=== PATIENT | male | born 1965 | race Caucasian/White ===

== ENCOUNTER → 2022-08-28 07:10 | Outpatient (CLI) | payer OTHER, SELFPAY ==
--- NOTE | ~2022-08-28 | MR_ITS ---
MRI of the lumbar spine Clinical History: Back pain Technique: Axial T2-weighted images, and sagittal T1-weighted, T2-weighted, and T2 fat-sat images wer e acquired. COMPARISON: 11/13/2017 Findings: There is no fracture or subluxation of the lumbar spine. Vertebral bodies maintain normal h eight and alignment. No suspicious bone marrow signal abnormality identified. At L1-L2, there is no significant disc bulge or herniation. There is minimal facet arthropathy. No sp inal canal stenosis or neural foraminal narrowing. At L2-L3, there is no disc bulge or herniation. There is mild facet arthropathy. No spinal canal sten osis or neural foraminal narrowing. At L3-L4, there is no disc bulge or herniation. There is facet arthropathy. No spinal canal stenosis or neural foraminal narrowing. At L4-L5, there is disc desiccation and mild diffuse disc bulge with facet arthropathy. No spinal can al stenosis. There is mild bilateral neural foraminal narrowing. At L5-S1, there is no disc bulge or herniation. There is mild facet arthropathy. No spinal canal sten osis or neural foraminal narrowing. Paravertebral soft tissues are unremarkable. Impression: Mild degenerative spondylosis, as detailed above. There is mild bilateral neural foraminal narrowing at L4-L5, related to facet arthropathy and disc bulge. Additional facet joint degenerative changes, a s detailed above. Reviewed, dictated and finalized at [facility]. BULANCE ATTENDANT Impression: Mild degenerative spondylosis, as detailed above. There is mild bilateral neura l foraminal narrowing at L4-L5, related to facet arthropathy and disc bulge. Ad ditional facet joint degenerative changes, as detailed above.
== END ==
PROVIDERS: PCP Family Medicine; Visit Provider Nurse Practitioner Adult Health
DX: M54.50 Low back pain, unspecified (principal); M43.06 Spondylolysis, lumbar region; M51.36 Other intervertebral disc degeneration, lumbar region
CPT/HCPCS: 72148

== ENCOUNTER → 2022-09-05 14:17 | Outpatient (CLI) | payer OTHER, SELFPAY ==
--- NOTE | ~2022-09-05 | XR_ITS ---
EXAMINATION: XR lumbar spine min 4V DATE: 09/05/2022 14:57 INDICATION: Low back pain TECHNIQUE: Anteroposterior, lateral, and bilateral oblique views of the lumbar spine, and cone-down l ateral view of the lumbosacral junction were obtained. COMPARISON: MRI, 08/28/2022 FINDINGS: Bone alignment is normal. There is no fracture. There is moderate loss of intervertebral di sc space height at L4-5. The vertebral body heights are maintained. There is moderate to severe facet joint osteoarthritis of the lower lumbar spine. Surgical clips in the right upper quadrant are likel y from prior cholecystectomy. IMPRESSION: 1. Mild lower lumbar spondylosis without acute findings. Reviewed, dictated and finalized at location L. [employer]W FOREMAN
== END ==
PROVIDERS: PCP Family Medicine; Visit Provider Nurse Practitioner Adult Health
DX: M47.26 Other spondylosis with radiculopathy, lumbar region (principal)
CPT/HCPCS: 72110

== ENCOUNTER 2023-09-05 12:49 | Outpatient (CLI) | payer OTHER, SELFPAY ==
--- NOTE | ~2023-09-05 | XR_ITS ---
EXAMINATION: XR chest 2V 09/05/2023 13:08 INDICATION: Dyspnea with exertion PROCEDURE: 2 view chest COMPARISON: 04/17/2017 FINDINGS: The lungs are clear. The cardiomediastinal silhouette is within normal limits. There are no pleural effusions. There is no pneumothorax suspected. IMPRESSION: 1: NO ACUTE CARDIOPULMONARY DISEASE. Reviewed, dictated and finalized at location A. RBARIC NURSE
== END 2023-09-05 12:50 | disposition home or self-care (01) ==
PROVIDERS: PCP Family Medicine; Visit Provider Internal Medicine Cardiovascular Disease
DX: R06.09 Other forms of dyspnea (principal)
CPT/HCPCS: 71046

== ENCOUNTER 2023-09-18 12:29 | Outpatient (CLI) | payer OTHER, SELFPAY ==
--- NOTE | 2023-09-18 16:03 | P.PCNPFT_ITS ---
PFT Procedure Performed PFT Procedure Performed Plethysmography (Lung Vol) Diffusing Cap (DLCO) Flow Vol Loop Spirometry w/o Bronchodil PFT Interpretation This is a pulmonary function test with spirometry, plethysmography and diffusing capacity. The test was performed and results interpreted in accordance with the 2019 and 2005 ATS/ERS Task Force guidelines respectively using the Global Lung Function Initiative-2012 reference equations. Patient demonstrated good effort and cooperation. Reproducibility criteria were met. The quality of the spirometry maneuver was Grade A. Findings: Spirometry: The contour the inspiratory and expiratory flow tracing are normal. The FVC is 3.61 L, 69% predicted. The FEV1 is 2.88 L, 71% predicted. The FEV1: FVC ratio is 80%. Plethysmography: The total lung capacity is 5.87 L, 78% predicted. The functional residual capacity is 2.69 L, 69% predicted. The residual volume is 2.55 L, 97% predicted. Diffusing capacity: The diffusing capacity unadjusted for hemoglobin and carboxyhemoglobin is 23.7, 77% predicted. The diffusing capacity adjusted for a lveolar volume is 4.86, 116% predicted. Impression: There is a mild restrictive ventilatory abnormality. The spirometry is normal without evidence of an obstructive abnormality. The diffusing capacity is normal. There are no prior studies for comparison
== END 2023-09-18 12:30 | disposition home or self-care (01) ==
PROVIDERS: PCP Family Medicine; Visit Provider Internal Medicine Cardiovascular Disease
DX: R06.09 Other forms of dyspnea (principal); R94.2 Abnormal results of pulmonary function studies
CPT/HCPCS: 94375; 94726; 94729

== ENCOUNTER 2024-03-16 10:50 | Emergency (ER) | payer OTHER, SELFPAY ==
--- NOTE | 2024-03-16 10:51 | ED.URI ---
HPI - URI/Sore Throat General Chief Complaint: Upper Respiratory Infection Stated Complaint: sinus issues Time Seen by Provider: 03/16/24 10:59 Source: patient, RN notes reviewed and old records reviewed Mode of arrival: ambulatory Limitations: no limitations History of Present Illness HPI Narrative: 58-year-old male presents to [facility] with complaints of congestion. reports that his heart rate has been higher then his normal. HX of A-fib and states that he does take his medications as prescribed. Patient denies any fevers. Denies any chest pain or shortness of breath. Related Data Home Medications Medication Instructions Recorded Confirmed aspirin 81 mg tablet,delayed 81 mg PO DAILY 08/13/22 03/16/24 release (Jack Low Dose Aspirin) atorvastatin 20 mg tablet 20 mg PO DAILY 08/13/22 03/16/24 cholecalciferol (vitamin D3) 10 10 mcg PO DAILY 08/13/22 03/16/24 mcg (400 unit) capsule [id number] 150 mcg-vit K1 1 tablet PO DAILY 08/13/22 03/16/24 30 mcg-lycop 300 mcg-lutein tablet (Centrum Minis Men 50 Plus) rabeprazole 20 mg tablet,delayed 20 mg PO DAILY 08/13/22 03/16/24 release Allergies Allergy/AdvReac Type Severity Reaction Status Date / Time No Known Allergies Allergy Verified 10/11/22 11:08 Review of Systems Review of Systems: All systems reviewed & are unremarkable except as noted in HPI and below Constitutional: Constitutional: Reports no additional constitutional complaints Eyes: Eyes: Reports no additional eye complaints ENT: Reports as per HPI Cardiovascular: Cardiovascular: Reports no additional cardiovascular complaints, Denies chest pain and Denies dyspnea Respiratory: Respiratory: Reports no additional respiratory complaints, Denies chest congestion, Denies cough and Denies dyspnea Gastrointestinal: Gastrointestinal: Reports no additional gastrointestinal complaints, Denies abdominal pain, Denies nausea and Denies vomiting Musculoskeletal: Musculoskeletal: Reports no additional musculoskeletal complaints Integumentary/Breasts: Skin/Breast: Reports system reviewed and no additional complaints, except as docu Neurologic: Reports system reviewed and no additional complaints, except as documented Psychiatric: Psychiatric: Reports no additional psychiatric complaints Allergic/Immunologic: Allergic/Immunologic: Reports no additional allergic/immunologic complaints PMFSH Past Medical History Medical History Acid reflux Anxiety Cardiac arrhythmia Depression FHx: total knee replacement Gallbladder disease Hiatal hernia Lumbar radiculopathy Lumbar spondylosis Other spondylosis with radiculopathy, lumbar region Sleep apnea Surgical History Surgical History Hx of tonsillectomy S/P cholecystectomy Family History Family History Other Depression Diabetes mellitus Heart disease Hypertension Social History Social History Smoking status: Never smoker Alcohol intake: never Substance use: never Substance use type: does not use Lack of Transportation: No Lack of Food: Never True Current Housing: I Have Housing Concerned About Future Housing: No Difficulty Paying Gas/Electric Bills: No Difficulty Paying for Meds: No Currently Unemployed: No Education: Decline to Answer Difficulty w/ Childcare or Family Care: Decline to Answer Living arrangements: with family Comments At the time of my signature, I reviewed and agree with the nursing past medical, surgical, social, and family history. There is no relevant family history pertinent to the patient complaint. Exam Const: General: cooperative, healthy appearing, comfortable, no acute distress, well developed, alert and well nourished Nutritional Appearance: well nouris
[2024-03-16 11:00] VITALS: BP 152/97; PULSE 86; RESP 14; TEMP 36.3; O2SAT 99
--- NOTE | 2024-03-16 11:04 | ECG_ITS ---
Test Date: 2024-03-16 11:15:24 Measurements Intervals [place] Rate: 78 P: 11 MD: 169 QRS: 21 QRSD: 106 T: 12 QT: 356 QTc: 406 Interpretive Statements SINUS RHYTHM INCOMPLETE RIGHT BUNDLE BRANCH BLOCK BASELINE ARTIFACT- I, II, AVR BORDERLINE ECG No previous ECG available for comparison Electronically Signed On 03-16-2024 12:24:30 CDT by Mack Boggs D.O.
[2024-03-16 11:32] LABS: EDINFLUASCREEN Negative; EDINFLUBSCREEN Negative
== END 2024-03-16 11:24 | disposition home or self-care (01) ==
PROVIDERS: Emergency Provider Nurse Practitioner; PCP Family Medicine
DX: J01.40 Acute pansinusitis, unspecified (principal); Z20.822 Contact with and (suspected) exposure to COVID-19; K21.9 Gastro-esophageal reflux disease without esophagitis; Z79.82 Long term (current) use of aspirin
CPT/HCPCS: 87426; 87804; 93005; 99213; G0463

== ENCOUNTER 2025-08-02 17:43 | Emergency (ER) | payer OTHER, SELFPAY ==
--- OUTSIDE RECORDS SUMMARY | 2025-08-02 17:50 | XMS_ITS | Data Portability ---
Author Organization [place] - [facility] Kuli Kuli, Main Office Address [address] [place] [address] Care Team Providers Care Fabrication Inspector Name Role Phone GAURAV UHNTER Primary Care Provider [phone] Assessment Encounter Date Assessment Date Assessment LastModified by Organization Details LastModified Time 04/03/2023 04/03/2023 57 yo M with - DDD L-SPINE - CHRONIC LOW BACK PAIN - HTN - CAD (S/p 1 stent) - HYPERBILIRUBINEMIA - RT SHOULDER PAIN, Chronic - CALCIFIC TENDINITIS, Rt shoulder - DDD L-SPINE - GERD - ALLERGIC RHINITIS - SIRIA (On Cpap & Oral device) - OVERWEIGHT - H/O HYPERKALEMIA - H/O ELEVATED LFTs - H/O VIT D DEFICIENCY 2-D echo: 09/30/22. MRI L-spine wo: 08/28/22. Annual labs: 08/23/22. MRI L-spine wo: 08/21/21. Annual labs: 08/20/21. X-ray L-spine: 04/26/21. Annual labs: 09/07/20. 2-D echo: 06/16/20. Annual labs: 08/24/19. MRI Rt shoulder wo: 11/22/18. Stress Echo: 08/14/18. Annual labs: 08/10/18. X-ray Rt shoulder: 08/03/18. X-ray L-spine: 11/07/17. D/w pt about his findings, recent labs & imagines and further plan of care. Advised pt to f/u with GI soon. All meds verified with pt. Meds as directed. Cont heat pack as directed. F/u with 2nd Ortho as per schedule. Cont f/u with Spine surgeon as per schedule. Cont f/u with Pain clinic as per schedule. Cont f/u with Ortho at [facility] as per schedule. Cont f/u with Cardio as per schedule. Cont f/u with Ophtho and Dentist as per schedule. Cont f/u with GI as per schedule. Pt has done PT and now doing at home. Diet and exercise explained in detail. BP diary education given and call us if any concerns. Pt had declined for any further work up for his elevated LFTs. HM: EGD - 2007, normal as per pt. Cont f/u with GI as per their recommendations. Colonoscopy - 2012, normal as per pt. Cont f/u with GI as per schedule. Tdap - 08/10/18. Flu - 08/19/22. Pneumo - Pt declined. Shingrix - At pharmacy/HD. F/u in 5 months. Annual labs in 08/30. [email or web address] Not available 04/03/2023 10:08:07 08/21/2023 08/21/2023 58 yo M with - WELL ADULT VISIT - DDD L-SPINE - CHRONIC LOW BACK PAIN - HTN - CAD (S/p 1 stent) - HYPERBILIRUBINEMIA - RT SHOULDER PAIN, Chronic - CALCIFIC TENDINITIS, Rt shoulder - DDD L-SPINE - GERD - ALLERGIC RHINITIS - SIRIA (On Cpap & Oral device) - OVERWEIGHT - H/O HYPERKALEMIA - H/O ELEVATED LFTs - H/O VIT D DEFICIENCY 2-D echo: 09/30/22. MRI L-spine wo: 08/28/22. Annual labs: 08/23/22. MRI L-spine wo: 08/21/21. Annual labs: 08/20/21. X-ray L-spine: 04/26/21. Annual labs: 09/07/20. 2-D echo: 06/16/20. Annual labs: 08/24/19. MRI Rt shoulder wo: 11/22/18. Stress Echo: 08/14/18. Annual labs: 08/10/18. X-ray Rt shoulder: 08/03/18. X-ray L-spine: 11/07/17. D/w pt about his findings, recent labs & imagines and further plan of care. Will do routine labs. Pt wants to do labs here today. All meds verified with pt. Meds as directed. Cont heat pack as directed. F/u with 2nd Ortho as per schedule. Cont f/u with Spine surgeon as per schedule. Cont f/u with Pain clinic as per schedule. Cont f/u with Ortho at [facility] as per schedule. Cont f/u with Cardio as per schedule. Cont f/u with Ophtho and Dentist as per schedule. Cont f/u with GI as per schedule. Pt has done PT and now doing at home. Diet and exercise explained in detail. BP diary education given and call us if any concerns. Pt had declined for any further work up for his elevated LFTs. HM: EGD - 2007, normal as per pt. Cont f/u with GI as per their recommendations. Colonoscopy - 2012, normal as per pt. Cont f/u with GI as per schedule. Tdap - 08/10/18. Flu - 08/21/23. Pneumo - Pt declined. Shingrix - At pharmacy/HD. F/u in 2-3 weeks. Annual labs in 08/31. Not available 08/21/2023 09:13:29 09/16/2023 09/16/2023 58 yo M with - DDD L-SPINE - CHRONIC LOW BACK PAIN - HTN - CAD (S/p 1 stent) - HYPERBILIRUBINEMIA - RT SHOULDER PAIN, Chronic - CALCIFIC TENDINITIS, Rt shoulder - DDD L-SPINE - GERD - ALLERGIC RHINITIS - SIRIA (On Cpap & Oral device) - OVERWEIGHT - H/O HYPERKALEMIA - H/O ELEVATED LFTs - H/O VIT D DEFICIENCY 2-D echo: 09/30/22. MRI L-spine wo: 08/28/22. Annual labs: 08/23/22. MRI L-spine wo: 08/21/21. Annual labs: 08/20/21. X-ray L-spine: 04/26/21. Annual labs: 09/07/20. 2-D echo: 06/16/20. Annual labs: 08/24/19. MRI Rt shoulder wo: 11/22/18. Stress Echo: 08/14/18. Annual labs: 08/10/18. X-ray Rt shoulder: 08/03/18. X-ray L-spine: 11/07/17. D/w pt about his findings, recent labs & imagines and further plan of care. All meds verified with pt. Meds as directed. Cont heat pack as directed. F/u with 2nd Ortho as per schedule. Cont f/u with Spine surgeon as per schedule. Cont f/u with Pain clinic as per schedule. Cont f/u with Ortho at [facility] as per schedule. Cont f/u with Cardio as per schedule. Cont f/u with Ophtho and Dentist as per schedule. Cont f/u with GI as per schedule. Pt has done PT and now doing at home. Diet and exercise explained in detail. BP diary education given and call us if any concerns. Pt had declined for any further work up for his elevated LFTs. HM: EGD - 2007, normal as per pt. Cont f/u with GI as per their recommendations. Colonoscopy - 09/15/23, normal as per pt. Cont f/u with GI as per schedule. Tdap - 08/10/18. Flu - 08/21/23. Pneumo - Pt declined. Shingrix - At pharmacy/HD. F/u PRN/Annually. Annual labs in 08/31. Not available 09/16/2023 09:15:17 08/24/2024 08/24/2024 59 yo M with - WELL ADULT VISIT - HTN - CAD (S/p 1 stent) - HYPERBILIRUBINEMIA - GERD - RT SHOULDER PAIN, Chronic - CALCIFIC TENDINITIS, Rt shoulder - DDD L-SPINE - CHRONIC LOW BACK PAIN - ALLERGIC RHINITIS - SIRIA (On Cpap & Oral device) - OVERWEIGHT - H/O HYPERKALEMIA - H/O ELEVATED LFTs - H/O VIT D DEFICIENCY 2-D echo: 09/30/22. MRI L-spine wo: 08/28/22. Annual labs: 08/23/22. MRI L-spine wo: 08/21/21. Annual labs: 08/20/21. X-ray L-spine: 04/26/21. Annual labs: 09/07/20. 2-D echo: 06/16/20. Annual labs: 08/24/19. MRI Rt shoulder wo: 11/22/18. Stress Echo: 08/14/18. Annual labs: 08/10/18. X-ray Rt shoulder: 08/03/18. X-ray L-spine: 11/07/17. D/w pt about his findings, recent labs & imagines and further plan of care. Will do routine labs. All meds verified with pt. Meds as directed. Cont heat pack as directed. F/u with 2nd Ortho as per schedule. Cont f/u with Spine surgeon as per schedule. Cont f/u with Pain clinic as per schedule. Cont f/u with Ortho at as per schedule. Cont f/u with Cardio as per schedule. Cont f/u with Ophtho and Dentist as per schedule. Cont f/u with GI as per schedule. Pt has done PT and now doing at home. Diet and exercise explained in detail. BP diary education given and call us if any concerns. Pt had declined for any further work up for his elevated LFTs. HM: EGD - 2007, normal as per pt. Cont f/u with GI as per their recommendations. Colonoscopy - 09/15/23, normal as per pt. Cont f/u with GI as per schedule. Tdap - 08/10/18. Flu - Pt gets at pharmacy. Pneumo - Pt declined. Shingrix - At pharmacy/HD. F/u in 2-3 weeks. Annual labs in 09/01. [email or web address] Not available 08/24/2024 10:06:07 Plan of Treatment Reminders Order Date Submit Date Provider Last Modified By Organization Details Last Modified Time Details Appointments None recorded. Lab vitamin D3, 25-hydroxy, serum 2023 024 [email or web address] [facility] (Lab), [address] [place], [address], 4 08:12:12 vitamin B12 + folate, serum or blood 2023 024 [email or web address] [facility] (Lab), [address] [place], [address], 4 08:12:12 glycohemogl obin, total, blood 2023 024 [facility] (Lab), [address] [place], [address], 4 08:12:11 CMP, serum or plasma 2023 024 [email or web address] [facility] (Lab), [address] [place], [address], 4 08:12:11 CBC w/ auto diff 2023 024 [email or web address] [facility] (Lab), [address] [place], [address], 4 08:12:11 lipid panel, blood 2023 024 [email or web address] [facility] (Lab), [address] [place], [address], 4 08:12:11 TSH, serum, reflex free T4 2023 024 [facility] (Lab), [address] [place], [address], 4 08:12:11 PSA, serum or plasma 2023 024 [email or web address] [facility] (Lab), [address] [place], [address], 4 08:12:11 urinalysis complete, reflex culture 2023 024 [facility] (Lab), [address] [place], [address], 4 08:12:11 uric acid, serum or plasma 2023 024 [email or web address] [facility] (Lab), [address] [place], [address], 4 08:12:12 vitamin B12 + folate, serum or blood 2022 023 [email or web address] [facility] (Lab), [address] [place], [address], 3 09:31:13 vitamin D3, 25-hydroxy, serum 2022 023 [facility] (Lab), [address] [place], [address], 3 15:13:20 CMP, serum or plasma 2022 023 [facility] (Lab), [address] [place], [address], 3 14:55:29 CBC w/ auto diff 2022 023 [facility] (Lab), [address] [place], [address], 3 14:15:14 lipid panel, blood [address] (Lab), [address] [place], [address], 3 09:30:33 TSH, serum, reflex free T4 [address] (Lab), [address] [place], [address], 3 09:30:44 PSA, serum or plasma [address] (Lab), [address] [place], [address], 3 09:30:53 urinalysis complete, reflex culture [address] (Lab), [address] [place], [address], 3 09:31:03 glycohemogl obin, total, blood 2022 023 [facility] (Lab), [address] [place], [address], 3 16:07:33 magnesium, serum or plasma 2022 023 [facility] (Lab), [address] [place], [address], 3 14:55:33 Referral gastroenter ologist referral 2022 023 [id number] Rina Mckeon MD, [address] [facility], [address], [address], 4 17:58:04 Procedures None recorded. Surgeries None recorded. Imaging None recorded. Medication Orders azithromyci n 250 mg tablet [address] [id number], [address] [place], [place], [id number], 4 09:39:03 Medrol (Alfonso) 4 mg tablets in a dose pack 2023 024 [email or web address] [facility][id number], [address], [place], [id number], 4 09:39:12 benzonatate 200 mg capsule 2023 024 [email or web address] [facility] #[id number], [address], [place], [id number], 4 09:39:06 fluticasone propionate 50 mcg/actuati on nasal spray,suspe nsion 2022 023 [facility], [facility] [place], [address], 3 09:07:52 tizanidine 2 mg tablet 2022 023 [id number], [address] [facility], [place], [place], [id number], 3 10:03:08 naproxen 500 mg tablet 2022 023 [facility], [address] [place] [address], [address], 3 10:07:41 fluticasone propionate 50 mcg/actuati on nasal spray,suspe nsion 2022 023 [facility], [address] [place] [address], [address], 3 10:07:10 rabeprazole 20 mg tablet,helen yed release 2022 023 [facility], [address] [place] [address], [address], 3 10:03:03 atorvastati n 20 mg tablet 2022 023 [facility], [address] [place] [address], [address], 3 10:07:10 Patient TargetsNo targets recorded. Patient InstructionsNo instructions recorded. 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 Referring Physician: Gaurav Hunter, Family Medicine, Encounter Date: 08/21/2023 Results Created Date Observation Date Name Description Value Unit Range Abnormal Flag Note LastModifiedBy Organization Detail LastModifiedTime 08/21/20 23 08/21/2023 CBC/C OMPLE TE BLD COUNT W/DIF F white blood cells 6.9 x10'3 /uL 4.2-10 .8 Not Available [facility] (Lab) [address] [place], [address], 08/21/2023 14:15:14 08/21/20 23 08/21/2023 CBC/C OMPLE TE BLD COUNT W/DIF F red blood cells 5.66 x10'6 /uL 4.10-5 .80 Not Available [facility] (Lab) [address] [place], [address], 08/21/2023 14:15:14 08/21/20 23 08/21/2023 CBC/C OMPLE TE BLD COUNT W/DIF F hemoglobin 16.8 g/dL 13.2-1 7.0 Not Available [facility] (Lab) [address] [place], [address], 08/21/2023 14:15:14 08/21/2008/21/2023 CBC/C OMPLE TE BLD COUNT W/DIF F hematocrit 49.0 % 39.3-5 0.0 Not Available [facility] (Lab) [address] [place], [address], 08/21/2023 14:15:14 08/21/2008/21/2023 CBC/C OMPLE TE BLD COUNT W/DIF F mean red cell volume 86.6 fL 80.0-9 7.0 Not Available [facility] (Lab) [address] [place], [address], 08/21/2023 14:15:14 08/21/2008/21/2023 CBC/C OMPLE TE BLD COUNT W/DIF F mean red cell hemoglobin 29.7 pg 27.0-3 3.0 Not Available [facility] (Lab) [address] [place], [address], 08/21/2023 14:15:14 08/21/2008/21/2023 CBC/C OMPLE TE BLD COUNT W/DIF F mean RBC HGB concentratio n 34.3 g/dL 31.0-3 6.0 Not Available [facility] (Lab) [address] [place], [address], 08/21/2023 14:15:14 08/21/20 23 08/21/2023 CBC/C OMPLE TE BLD COUNT W/DIF F red cell distribution width 13.0 % 11.8-1 5.5 Not Available [facility] (Lab) [address] [place], [address], 08/21/2023 14:15:14 08/21/20 23 08/21/2023 CBC/C OMPLE TE BLD COUNT W/DIF F platelets 295 x10'3 /uL 150-40 0 Not Available [facility] (Lab) [address] [place], [address], 08/21/2023 14:15:14 08/21/2008/21/2023 CBC/C OMPLE TE BLD COUNT W/DIF F mean platelet volume 10.2 fL 9.0-12 .4 Not Available [facility] (Lab) [address] [place], [address], 08/21/2023 14:15:14 08/21/2008/21/2023 CBC/C OMPLE TE BLD COUNT W/DIF F neutrophils 59.0 % 39.0-7 2.0 Not Available [facility] (Lab) [address] [place], [address], 08/21/2023 14:15:14 08/21/2008/21/2023 CBC/C OMPLE TE BLD COUNT W/DIF F lymphocytes 26.3 % 16.0-4 7.0 Not Available [facility] (Lab) [address] [place], [address], 08/21/2023 14:15:14 08/21/2008/21/2023 CBC/C OMPLE TE BLD COUNT W/DIF F monocytes 9.2 % 5.0-12 .0 Not Available [facility] (Lab) [address] [place], [address], 08/21/2023 14:15:14 08/21/20 23 08/21/2023 CBC/C OMPLE TE BLD COUNT W/DIF F eosinophils 4.5 % 1.0-7. 0 Not Available [facility] (Lab) [address] [place], [address], 08/21/2023 14:15:14 08/21/2008/21/2023 CBC/C OMPLE TE BLD COUNT W/DIF F basophils 0.7 % 0.0-2. 0 Not Available [facility] (Lab) [address] [place], [address], 08/21/2023 14:15:14 08/21/2008/21/2023 CBC/C OMPLE TE BLD COUNT W/DIF F immature granulocytes 0.3 % 0.00-0 .50 Not Available [facility] (Lab) [address] [place], [address], 08/21/2023 14:15:14 08/21/2008/21/2023 CBC/C OMPLE TE BLD COUNT W/DIF F neutrophils, absolute count 4.09 x10'3 /uL 1.5-8. 0 Not Available [facility] (Lab) [address] [place], [address], 08/21/2023 14:15:14 08/21/20 23 08/21/2023 CBC/C OMPLE TE BLD COUNT W/DIF F lymphocytes, absolute count 1.82 x10'3 /uL 1.07-3 .43 Not Available [facility] (Lab) [address] [place], [address], 08/21/2023 14:15:14 08/21/20 23 08/21/2023 CBC/C OMPLE TE BLD COUNT W/DIF F monocytes, absolute count 0.64 x10'3 /uL 0.29-0 .99 Not Available [facility] (Lab) [address] [place], [address], 08/21/2023 14:15:14 08/21/20 23 08/21/2023 CBC/C OMPLE TE BLD COUNT W/DIF F eosinophils, absolute count 0.31 x10'3 /uL 0.02-0 .53 Not Available [facility] (Lab) [address] [place], [address], 08/21/2023 14:15:14 08/21/20 23 08/21/2023 CBC/C OMPLE TE BLD COUNT W/DIF F basophils, absolute count 0.05 x10'3 /uL 0.01-0 .08 Not Available [facility] (Lab) [address] [place], [address], 08/21/2023 14:15:14 08/21/20 23 08/21/2023 CBC/C OMPLE TE BLD COUNT W/DIF F immature granulocytes ,absolute 0.02 x10'3 /uL 0.00-0 .05 Not Available [facility] (Lab) [address] [place], [address], 08/21/2023 14:15:14 08/21/20 23 08/21/2023 CBC/C OMPLE TE BLD COUNT W/DIF F nucleated red blood cells 0.0 % -0 Not Available [facility] (Lab) [address] [place], [address], 08/21/2023 14:15:14 08/21/20 23 08/21/2023 CBC/C OMPLE TE BLD COUNT W/DIF F NRBC# 0.00 x10'3 /uL Not Available [facility] (Lab) [address] [place], [address], 08/21/2023 14:15:14 08/21/20 23 08/21/2023 URINA LYSIS COMPL ETE/I RIS W/RFX color YELLOW Not Available [facility] (Lab) [address] [place], [address], 08/21/2023 14:22:16 08/21/20 23 08/21/2023 URINA LYSIS COMPL ETE/I RIS W/RFX appear CLEAR Not Available [facility] (Lab) [address] [place], [address], 08/21/2023 14:22:16 08/21/20 23 08/21/2023 URINA LYSIS COMPL ETE/I RIS W/RFX specific gravity 1.023 1.001- 1.030 Not Available [facility] (Lab) [address] [place], [address], 08/21/2023 14:22:16 08/21/20 23 08/21/2023 URINA LYSIS COMPL ETE/I RIS W/RFX pH 6.5 pH_un its 5.0-9. 0 Not Available [facility] (Lab) [address] [place], [address], 08/21/2023 14:22:16 08/21/20 23 08/21/2023 URINA LYSIS COMPL ETE/I RIS W/RFX leukocytes NEGATI VE wyatt/u L negati ve- Not Available [facility] (Lab) [address] [place], [address], 08/21/2023 14:22:16 08/21/20 23 08/21/2023 URINA LYSIS COMPL ETE/I RIS W/RFX nitrite NEGATI VE negati ve- Not Available [facility] (Lab) [address] [place], [address], 08/21/2023 14:22:16 08/21/20 23 08/21/2023 URINA LYSIS COMPL ETE/I RIS W/RFX protein 10 mg/dL negati ve- abnormal Not Available [facility] (Lab) [address] [place], [address], 08/21/2023 14:22:16 08/21/20 23 08/21/2023 URINA LYSIS COMPL ETE/I RIS W/RFX glucose NORMAL mg/dL normal - Not Available [facility] (Lab) [address] [place], [address], 08/21/2023 14:22:16 08/21/20 23 08/21/2023 URINA LYSIS COMPL ETE/I RIS W/RFX ketones NEGATI VE mg/dL negati ve- Not Available [facility] (Lab) [address] [place], [address], 08/21/2023 14:22:16 08/21/20 23 08/21/2023 URINA LYSIS COMPL ETE/I RIS W/RFX urobilinogen NORMAL mg/dL normal - Not Available [facility] (Lab) [address] [facility] [place], [address], 08/21/2023 14:22:16 08/21/20 23 08/21/2023 URINA LYSIS COMPL ETE/I RIS W/RFX bilirubin NEGATI VE mg/dL negati ve- Not Available [facility] (Lab) [address] [place], [address], 08/21/2023 14:22:16 08/21/20 23 08/21/2023 URINA LYSIS COMPL ETE/I RIS W/RFX blood NEGATI VE mg/dL negati ve- Not Available [facility] (Lab) [address] [place], [address], 08/21/2023 14:22:16 08/21/20 23 08/21/2023 URINA LYSIS COMPL ETE/I RIS W/RFX white blood cells 0-8 /i??h pfi?? 0-8 Not Available [facility] (Lab) [address] [place], [address], 08/21/2023 14:22:16 08/21/20 23 08/21/2023 URINA LYSIS COMPL ETE/I RIS W/RFX red blood cells 0-4 /i??h pfi?? 0-4 Not Available [facility] (Lab) [address] [place], [address], 08/21/2023 14:22:16 08/21/20 23 08/21/2023 URINA LYSIS COMPL ETE/I RIS W/RFX bacteria NONE Not Available [facility] (Lab) [address] [place], [address], 08/21/2023 14:22:16 08/21/20 23 08/21/2023 URINA LYSIS COMPL ETE/I RIS W/RFX mucous OCCASI ONAL /i??l pfi?? abnormal Not Available [facility] (Lab) [address] [place], [address], 08/21/2023 14:22:16 08/21/20 23 08/21/2023 URINA LYSIS COMPL ETE/I RIS W/RFX squamous epithelial OCCASI ONAL /i??l pfi?? abnormal Not Available [facility] (Lab) [address] [place], [address], 08/21/2023 14:22:16 08/21/20 23 08/21/2023 COMPR EHENS MATT METAB OLIC PANEL sodium 139 mmol/ L 137-14 5 Not Available [facility] (Lab) [address] [place], [address], 08/21/2023 14:55:29 08/21/20 23 08/21/2023 COMPR EHENS MATT METAB OLIC PANEL potassium 4.3 mmol/ L 3.5-5. 1 Not Available [facility] (Lab) [address] [place], [address], 08/21/2023 14:55:29 08/21/20 23 08/21/2023 COMPR EHENS MATT METAB OLIC PANEL chloride 104 mmol/ L 98-107 Not Available [facility] (Lab) [address] [place], [address], 08/21/2023 14:55:29 08/21/20 23 08/21/2023 COMPR EHENS MATT METAB OLIC PANEL carbon dioxide 29 mmol/ L 22-30 Not Available [facility] (Lab) [address] [place], [address], 08/21/2023 14:55:29 08/21/20 23 08/21/2023 COMPR EHENS MATT METAB OLIC PANEL anion gap 10.3 mmol/ L 14-22 low Not Available [facility] (Lab) [address] [place], [address], 08/21/2023 14:55:29 08/21/20 23 08/21/2023 COMPR EHENS MATT METAB OLIC PANEL glucose 119 mg/dL 70-99 high Not Available [facility] (Lab) [address] [place], [address], 08/21/2023 14:55:29 08/21/20 23 08/21/2023 COMPR EHENS MATT METAB OLIC PANEL BUN 18 mg/dL 8-19 Not Available [facility] (Lab) [address] [place], [address], 08/21/2023 14:55:29 08/21/20 23 08/21/2023 COMPR EHENS MATT METAB OLIC PANEL creatinine 0.70 mg/dL 0.66-1 .25 Not Available [facility] (Lab) [address] [place], [address], 08/21/2023 14:55:29 08/21/20 23 08/21/2023 COMPR EHENS MATT METAB OLIC PANEL GFR >60 Refer ence Range : Zanoni ge GFR Healt hy Adult : >60 mL/mi n/1.7 3 m2 Chron ic Kidne y Disea se: 15-60 mL/mi n/1.7 3 m2 Kidne y Failu re: <15/m L/min /1.73 m2 www.n iddk. nih.g ov The MDRD study equat ion has not been valid ated in child berenice <18 years of age; pregn ant women ; the elder ly >85 years of age; or in some racia l or ethni c subgr oups, such as Hispa nics. Outsi de the valid ated swapna eters , estim ated GFR is less accur ate, requi ring clini timothy judgm ent on a case- by-ca se basis . Clini timothy inter preta tion for other races and ages must be made by the clini wendy. The MDRD study equat ion has not been valid ated for the evalu ation of serum creat inine relat ed to nutri tanesha l statu s or medic ation usage . For perso ns <18 years of age, a pedia tric GFR calcu lator is avail able on the [facility] websi te: https ://bong salmeron.o rg/pr ofess ional s/kdo qi/gf r_cal culat or Not Available [facility] (Lab) [address] [place], [address], 08/21/2023 14:55:29 08/21/20 23 08/21/2023 COMPR EHENS MATT METAB OLIC PANEL alkaline phosphatase 49 U/L 38-126 Not Available [facility] (Lab) [address] [place], [address], 08/21/2023 14:55:29 08/21/20 23 08/21/2023 COMPR EHENS MATT METAB OLIC PANEL alanine aminotransfe rase 49 U/L 0-50 Not Available [facility] (Lab) [address] [place], [address], 08/21/2023 14:55:29 08/21/20 23 08/21/2023 COMPR EHENS MATT METAB OLIC PANEL aspartate aminotransfe rase 33 U/L 15-46 Not Available [facility] (Lab) [address] [place], [address], 08/21/2023 14:55:29 08/21/20 23 08/21/2023 COMPR EHENS MATT METAB OLIC PANEL bilirubin, total 1.00 mg/dL 0.20-1 .30 Not Available [facility] (Lab) [address] [place], [address], 08/21/2023 14:55:29 08/21/20 23 08/21/2023 COMPR EHENS MATT METAB OLIC PANEL calcium 9.7 mg/dL 8.4-10 .2 Not Available [facility] (Lab) [address] [place], [address], 08/21/2023 14:55:29 08/21/20 23 08/21/2023 COMPR EHENS MATT METAB OLIC PANEL total protein 7.1 g/dL 6.3-8. 2 Not Available [facility] (Lab) [address] [place], [address], 08/21/2023 14:55:29 08/21/20 23 08/21/2023 COMPR EHENS MATT METAB OLIC PANEL albumin 4.2 g/dL 3.4-5. 0 Not Available [facility] (Lab) [address] [place], [address], 08/21/2023 14:55:29 08/21/20 23 08/21/2023 COMPR EHENS MATT METAB OLIC PANEL globulin 2.9 g/dL 2.6-4. 2 Not Available [facility] (Lab) [address] [place], [address], 08/21/2023 14:55:29 08/21/20 23 08/21/2023 COMPR EHENS AMTT METAB OLIC PANEL A/G ratio 1.4 ratio 1.0-2. 0 Not Available [facility] (Lab) [address] [place], [address], 08/21/2023 14:55:29 08/21/20 23 08/21/2023 LIPID PANEL cholesterol 134 mg/dL 140-19 9 low [facility] RECOM MENDA TION FOR JEAN MARIE STERO L: ADULT CHILD LOW RISK: <200 <170 BORDE RLINE : <200- 239 ----- HIGH RISK: >240 >200 Not Available [facility] (Lab) [address] [place], [address], 08/21/2023 14:55:32 08/21/20 23 08/21/2023 LIPID PANEL triglyceride s 81 mg/dL 0-150 [facility] NSUS REPOR T RECOM MENDA TION FOR TRIGL YCERI BRY: ADULT CHILD LOW RISK: <150 ----- BODER LINE: 150-1 99 ----- HIGH RISK: >200 ----- Not Available [facility] (Lab) [address] [place], [address], 08/21/2023 14:55:32 08/21/20 23 08/21/2023 LIPID PANEL HDL cholesterol 59 mg/dL 40- Not Available [facility] (Lab) [address] [place], [address], 08/21/2023 14:55:32 08/21/20 23 08/21/2023 LIPID PANEL LDL cholesterol, calculated 59 mg/dL 0-130 [facility] NSUS REPOR T RECOM MENDA TIONS FOR LDL: ADULT CHILD LOW RISK <130 <110 (OPTI MAL LDL) <100 ----- BORDE RLINE : 130-1 59 ----- HIGH RISK: >160 >130 A TRIGL YCERI DE RESUL T >400 INVAL IDATE S THE CALCU LATIO N FOR LDL FRACT IONAT ION - THE LDL RESUL T WILL NOT BE REPOR BISHNU. Not Available [facility] (Lab) [address] [place], [address], 08/21/2023 14:55:32 08/21/20 23 08/21/2023 MAGNE SIUM magnesium 2.1 mg/dL 1.6-2. 3 Not Available [facility] (Lab) [address] [place], [address], 08/21/2023 14:55:33 08/21/20 23 08/21/2023 VITAM IN D 25-HY DROXY vd25oh 50.7 NG/mL 30-100 Vitam in D Statu s: Defic ient: <20 ng/mL Insuf ficie nt: 20-29 ng/mL Suffi cient : 30-10 0 ng/mL Not Available [facility] (Lab) [address] [place], [address], 08/21/2023 15:13:20 08/21/2008/21/2023 TSH W/REF BARBARA FT4 TSH with reflex free T4 1.330 uIU/m L 0.465- 4.680 Not Available [facility] (Lab) [address] [place], [address], 08/21/2023 15:33:43 08/21/20 23 08/21/2023 PSA, TOTAL PSA, total 0.45 NG/mL 0.00-4 .00 Not Available [facility] (Lab) [address] [place], [address], 08/21/2023 15:33:49 08/21/20 23 08/21/2023 HEMOG LOBIN A1C HA1C 5.1 % 4.0-6. 0 Diabe petrona Scree illa Crite bola: <5.7% Consi stent with absen ce of diabe petrona 5.7-6 .4% Consi stent with incre ased risk for diabe petrona (pred iabet es) >OR=6 .5% Consi stent with diabe petrona REFER ENCE: Diabe petrona Care 2016, 39(Mercedes ppl.1 ):s13 -s22 Not Available [facility] (Lab) [address] [place], [address], 08/21/2023 16:07:33 08/21/20 23 08/21/2023 VITAM IN B12 (NGUYỄN ASHLEY ) vb12 682 pg/mL 239-93 1 Not Available [facility] (Lab) [address] [place], [address], 08/21/2023 16:10:35 08/21/20 23 08/21/2023 FOLAT E, SERUM /PLAS MA folate >20.0 NG/mL 2.76-2 0.0 Not Available [facility] (Lab) [address] [place], [address], 08/21/2023 16:10:45 09/05/20 23 09/05/2023 XR, chest , 2 view No observ ation record ed. [address] [facility] [place], [address], 09/16/2023 09:05:12 09/15/19 24 09/15/2023 colon oscop y scree lila (PROC ) No observ ation record ed. [address] [facility] (Pre-Screen) [address] [place], [address], 09/16/2023 09:05:11 09/18/19 24 09/18/2023 PFT, compl ete No observ ation record ed. [address], [address], 03/22/2024 12:04:05 Result Notes None recorded. Problems Name Problem SNOMED Code Status Onset Date Resolution Date Notes Provider Name and Address Organization Details Recorded Time Disorder of shoulder 070898131 Active Not Available [facility] 3 04:54:32 Acute sinusitis 43068416 Completed Not Available [facility] 3 04:54:32 Tight chest 19810786 Completed Not Available [facility] 3 04:54:32 Chest pain 45676307 Completed Not Available [facility] 3 04:54:33 Knee pain Completed Not Available [facility] 3 04:54:33 Vitamin D deficienc y 60224545 Active Not Available [facility] 3 04:54:33 Idiopathi c hypersomn ia 31019008512 07 Active Not Available [facility] 3 04:54:33 Disorder of vitamin D 734339599 Completed Not Available [facility] 3 04:54:33 Periodic limb movement disorder 661340010 Active Not Available [facility] 3 04:54:33 Pain of shoulder region 23532409 Completed Not Available [facility] 3 04:54:34 Anxiety 40349745 Completed Not Available [facility] 3 04:54:34 Shooting pain 33558086 Completed Not Available [facility] 3 04:54:34 Upper respirato ry infection 74551420 Completed Not Available [facility] 3 04:54:34 Otitis media 93805974 Completed Not Available [facility] 3 04:54:35 Increased liver function 55369838 Completed Not Available [facility] 3 04:54:35 Sleep apnea 32210195 Completed Not Available [facility] 3 04:54:35 Posterior rhinorrhe a 24954766 Completed Not Available [facility] 3 04:54:35 Fatigabil ity 89023760 Completed Not Available [facility] 3 04:54:36 Neck pain 01382716 Completed Not Available [facility] 3 04:54:36 Fatigue 45694361 Active Not Available [facility] 3 04:54:36 Low back pain 727849151 Active 2017 Not Available [facility] 3 04:54:33 History of placement of stent for coronary artery disease 127796605 Active 2017 Not Available [facility] 3 04:54:33 Coronary arteriosc lerosis 10635081 Active 2017 Not Available [facility] 3 04:54:34 Essential hypertens ion 71868135 Active 2017 Not Available [facility] 3 04:54:34 Allergic rhinitis 88514384 Active 2017 Not Available [facility] 3 04:54:34 Pain of right shoulder joint 97491218319 395226 Active 2017 Not Available [facility] 3 04:54:32 Overweigh t 195804696 Active 2017 Not Available [facility] 3 04:54:32 Calcific tendiniti s of right shoulder 26644090093 9107 Active 2017 Not Available [facility] 3 04:54:33 Obstructi ve sleep apnea syndrome 71802881 Active 2017 Not Available [facility] 3 04:54:35 Liver enzymes level above reference range 810153162 Active 2017 Not Available [facility] 3 04:54:35 Seasonal allergic rhinitis 802278860 Active 2018 Not Available [facility] 3 04:54:33 Hyperlipi demia 79481347 Active 2018 Not Available [facility] 3 04:54:34 Hyperbili rubinemia 43209058 Active 2018 Not Available [facility] 3 04:54:32 Hyperkale lisette 01493484 Active 2020 Not Available [facility] 3 04:54:32 Chronic low back pain 961379664 Active 2020 Not Available [facility] 3 04:54:32 Degenerat ion of lumbar intervert ebral disc 86933198 Active 2020 Not Available [facility] 3 04:54:32 Gastroeso phageal reflux disease without esophagit is 909970512 Active 2021 Not Available [facility] 3 04:54:32 COVID-19 068447500 Active 2022 Gaurav Hunter MD [address], [address] [address], [place], [address] , [facility] 3 13:58:03 Cough 86679854 Active 2023 Gaurav Hunter MD [address], [address], [place], [address] , [facility] [employer] [facility] 4 12:06:21 Bronchiti s 48163143 Active 2023 Gaurav Hunter MD [address], [address], [place], [address] , [facility] [employer] [facility] 4 12:09:20 Problem Notes None recorded. Medical Equipment None Reported. Allergies No known drug allergies Medications Name Sig Start Date Stop Date Status Note LastModified by Organization Details LastModified Time cyclobenza sharmaine 10 mg tablet Take 1 tablet every 12 hours by oral route as directed for 30 days, as needed only. active Not Available Not Available No t Available atorvastat in 40 mg tablet TK 1 T PO QAM 12/28 completed Not Available Not Available Not Available acetaminop hen 325 mg tablet Take 2 tablets every 6 hours by oral route as needed. 12/07 completed Not Available Not Available Not Available rabeprazol e 20 mg tablet,del ayed release Take 1 tab po QAM as directed . 2024 active Not Available Not Available Not Avai lable atorvastat in 20 mg tablet Take 1 tablet every day by oral route at bedtime for 90 days. 2024 active Not Available Not Available Not Avai lable tizanidine 2 mg tablet TAKE 1 TABLET BY MOUTH EVERY 12 HOURS NEEDED active Not Available Not Available No t Available azithromyc in 250 mg tablet TAKE 2 TABLETS BY MOUTH FOR 1 DAY THEN TAKE 1 TABLET BY MOUTH DAILY FOR 4 DAYS 08/24 completed Not Available Not Available Not Available benzonatat e 200 mg capsule TAKE 1 CAPSULE BY MOUTH EVERY 8 HOURS FOR 10 DAYS NEEDED 08/24 completed Not Available Not Available Not Available meloxicam 15 mg tablet TK 1 T PO QAM WITH FOOD active Not Available Not Available No t Available metoprolol succinate ER 100 mg tablet,ext ended release 24 hr TAKE 0.5 TAB PO DAILY active Not Available Not Available No t Available tramadol 50 mg tablet Take 1 tablet every 8 hours by oral route as needed for 15 days. active Not Available Not Available No t Available amoxicilli n 875 mg tablet Take 1 tablet every 12 hours by oral route with meals for 10 days. active Not Available Not Available No t Available Klonopin 0.5 mg tablet Take 1 tablet every day by oral route at bedtime. 04/16 completed Not Available Not Available Not Available ropinirole 0.25 mg tablet active Not Available Not Available Not Available echinacea 500 mg capsule Take 1 capsule as needed by oral route as directed . 12/07 completed Not Available Not Available Not Available metoprolol tartrate 50 mg tablet 11/06 completed Not Available Not Available Not Available nitroglyce rin 0.4 mg sublingual tablet active Not Available Not Available Not Available furosemide 20 mg tablet active Not Available Not Available Not Available ergocalcif lizzie (vitamin D2) 1,250 mcg (50,000 unit) capsule TAKE 1 CAPSULE BY MOUTH EVERY WEEK IN THE MORNING active taking otc now Not Available Not Available Not Available methylpred nisolone 4 mg tablets in a dose pack FOLLOW PACKAGE DIRECTIO NS 08/24 completed Not Available Not Available Not Available ondansetro n 4 mg disintegra ting tablet Take 1 tablet every 6-8 hours by oral route as needed for 5 days. active Not Available Not Available No t Available fluticason e propionate 50 mcg/actuat ion nasal spray,susp ension USE 1 SPRAY IN EACH NOSTRIL DIRECTED NEEDED active Not Available Not Available No t Available naproxen 500 mg tablet TAKE 1 TABLET BY MOUTH EVERY 12 HOURS WITH FOOD NEEDED active Not Available Not Available No t Available amoxicilli n 875 mg-potassi um clavulanat e 125 mg tablet TAKE 1 TABLET BY MOUTH EVERY 12 HOURS 08/24 completed Not Available Not Available Not Available nabumetone 500 mg tablet TAKE 1 TABLET BY MOUTH EVERY 12 HOURS NEEDED 08/19 completed Take with food, as needed only. Don't take with Naproxe n. Not Available Not Available Not Available Asprin Ec Low Dose 81 mg tablet,del ayed release Take 1 tablet every day by oral route for 90 days. 12/07 completed Not Available Not Available Not Available cyclobenza sharmaine 5 mg tablet TK 1 T PO QHS 08/23 completed Not Available Not Available Not Available multivitam in TAKE 1 PO ONCE DAILY 12/07 completed Not Available Not Available Not Available melatonin 5 mg tablet Take 1 tablet as needed by oral route as directed . 12/07 completed Not Available Not Available Not Available GaviLyte-G 236 gram-22.74 gram-6.74 gram-5.86 gram oral solution MIX AND DRINK DIRECTED 09/16 completed Not Available Not Available Not Available Solu-Medro l (PF) 125 mg/2 mL solution for injection Take 125 mg by injectio n route as needed for 1 day. 08/23 completed Not Available Not Available Not Available Vitamin D3 50 mcg (2,000 unit) capsule Take 1 capsule every day by oral route. 12/07 completed Not Available Not Available Not Available Brilinta 90 mg tablet TK 1 T PO Q 12 H 08/03 completed Not Available Not Available Not Available [place]-3 Krill Oil 1,000 mg-230 mg-60 mg capsule Take 1 capsule every day by oral route as needed. 12/07 completed Not Available Not Available Not Available Adult Aspirin Regimen 81 mg tablet,del ayed release Take 1 tablet every day by oral route with meals for 90 days. 2019 active Not Available Not Available Not Avai lable Fluarix Quad (PF) 60 mcg (15 mcg x 4)/0.5 mL IM syringe ADM 0.5ML IM UTD 08/23 completed Not Available Not Available Not Available Flowflex COVID-19 Antigen Home Test kit 12/26 completed Not Available Not Available Not Available Paxlovid 300 mg (150 mg x 2)-100 mg tablets in a dose pack TK 2 NIRMATRE LVIR TS AND 1 RITONAVI R T TOGETHER PO TWICE DAILY UNTIL ALL TAKEN 08/24 completed Not Available Not Available Not Available Vitals Date Recorded Body height Body mass index (BMI) Body weight Body temperature Heart rate Respiratory rate Oxygen saturation Systolic And Diastolic Provider Name and Address Organization Details Last Updated DateTime 4 186.69 cm 28.8 kg/m2 292768. 26 g 98.2 [degF] 64 /min 16 /min 98 % 142/82 mm[Hg] Edgardo Joseph [facility] 4 09:03:43 Date Recorded Systolic And Diastolic Provider Name and Address Organization Details Last Updated DateTime 03/22/2024 140/84 mm[Hg] Holly Israel [address] [facility], [address], [place], [address], [facility] 03/22/2024 12:04:03 Date Recorded Body height Body mass index (BMI) Body weight Body temperature Heart rate Respiratory rate Oxygen saturation Provider Name and Address Organization Details Last Updated DateTime 4 186.69 cm 29.4 kg/m2 867957. 93 g 98.1 [degF] 68 /min 20 /min 98 % Edgardo Kamara [facility] [employer] 4 11:59:55 Date Recorded Heart rate Provider Name an d Address Organization Details Last Updated DateTime 04/03/2023 96 /min Holly Israel [address], [address], [address], [facility] [employer] 04/03/2023 09:56:23 Date Recorded Body height Body mass index (BMI) Body weight Body temperature Respiratory rate Oxygen saturation Pain severity - 0-10 verbal numeric rating [Score] - Reported Systolic And Diastolic Provider Name and Address Organization Details Last Updated DateTime 3 186.69 cm 29.7 kg/m2 192106. 41 g 98.2 [degF] 16 /min 98 % 0 122/82 mm[Hg] Edgardo Kamara [facility] [employer] 3 09:55:02 Date Recorded Body mass index (BMI) Body weight Provider Name and Address Organization Details Last Updated DateTime 08/21/2023 29.6 kg/m2 133839.98 g Gaurav Hunter MD [address], [address], [place], [address], [facility] [employer] 09/16/2023 09:04:52 Date Recorded Body height Body temperature Heart rate Respiratory rate Oxygen saturation Systolic And Diastolic Provider Name and Address Organization Details Last Updated DateTime 3 186.69 cm 98.1 [degF] 71 /min 16 /min 97 % 138/82 mm[Hg] Edgardo Kamara [facility] [employer] 3 09:02:20 Date Recorded Body height Body mass index (BMI) Body weight Body temperature Oxygen saturation Heart rate Systolic And Diastolic Provider Name and Address Organization Details Last Updated DateTime 4 186.69 cm 30 kg/m2 623189 g 97.2 [degF] 96 % 72 /min 130/70 mm[Hg] Jewell Lew RN [facility] 09:30:56 Social History Question Answer Notes LastModified by Organizat ion Details LastModified Time Tobacco Smoking Status Never Smoker Georgina Gonzalezbrayan [email or web address], [facility] 09/16/2023 08:54:50 Do You Have An Advance Directive? No [id number] Information not available 11/06/2022 Do You Wear A Helmet When Biking? Yes [email or web address] Information not available 09/16/2023 What Is Your Level Of Caffeine Consumption? Moderate [id number] Information not available 11/06/2022 How Much Tobacco Do You Chew? None [id number] Information not available 11/06/2022 In The 14 Days Before Symptom Onset, Have You Had Close Contact With A Laboratory-confir med COVID-19 While That Case Was Ill? No [email or web address] Information not available 09/16/2023 In The 14 Days Before Symptom Onset, Have You Had Close Contact With A Person Who Is Under Investigation For COVID-19 While That Person Was Ill? No Information not available 09/16/2023 What Type Of Diet Are You Following? REGULAR [id number] Information not available 11/06/2022 What Is The Highest Grade Or Level Of School You Have Completed Or The Highest Degree You Have Received? [id number] [email or web address] Information not available 09/16/2023 Have There Been Any Changes To Your Family Or Social Situation? No [email or web address] Information no t available 09/16/2023 Are There Any Guns Present In Your Home? No [email or web address] Information not available 09/16/2023 Do You Use Insect Repellent Routinely? No Information not available 09/16/2023 Where [facility] You Live? [facility] [email or web address] Information not available 09/16/2023 Do You Have A Medical Power Of Political Advisor? No [email or web address] Information not available 09/16/2023 Have You Ever Been Counseled For Unhealthy Alcohol Use? No [email or web address] Information not available 09/16/2023 Do You Have Any Pets? Yes [email or web address] Information not available 09/16/2023 What Is Your Relationship Status? [id number] Information not available 11/06/2022 Do You Use Your Seat Belt Or Car Seat Routinely? Yes Information not available 09/16/2023 Do You Have Smoke And Carbon Monoxide Detectors In Your Home? Yes Information not available 09/16/2023 Are You Passively Exposed To Smoke? No [email or web address] Information no t available 09/16/2023 Are There Any Smokers In Your House? No [email or web address] Information not available 09/16/2023 How Much Tobacco Do You Smoke? No [id number] Information not available 11/06/2022 Do You Participate In Social Media? Yes [email or web address] Information not available 09/16/2023 Do You Use Sunscreen Routinely? No [email or web address] Information not available 09/16/2023 Has Tobacco Cessation Counseling Been Provided? No [email or web address] Information not available 09/16/2023 Have You Recently Traveled Abroad? No [email or web address] Information not available 09/16/2023 Are You Currently In School? No [email or web address] Information not available 09/16/2023 Do You Have Any Dietary Restrictions? No [email or web address] Information not available 09/16/2023 Sex: Male Functional Status Question Answer Note LastModified by Organizat ion Details LastModified Time Do you use any illicit or recreational drugs? No [email or web address] Information not available 09/16/2023 Do you or have you ever used any other forms of tobacco or nicotine? No [email or web address] Information not available 09/16/2023 What is your level of alcohol consumption? 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 Occasional [id number] Information not available 11/06/2022 Mental Status Question Answer Note LastModified by Organization D etails LastModified Time Do you feel stressed (tense, restless, nervous, or anxious, or unable to sleep at night)? [id number] [email or web address] Information not available 09/16/2023 Family History Relationship Description Onset Age of this Age Resolved Age Notes LastModified by Organization Details LastModified Time Father No current problems or disability [id number] Not available 11/06/2022 04:44:14 Mother No current problems or disability [id number] Not available 11/06/2022 04:44:14 Medical History Condition Response HEART DISEASE/HEART PROBLEMS Y Immunizations Vaccine Type Date Status Note Provider Nam e and Address Organization Details Recorded Time Tdap 08/10/2018 completed Not Available [facility] 11/06/2022 05:06:56 Influenza, split virus, quadrivalent, PF 08/19/2022 completed Not Available [facility] 05:06:56 Influenza, split virus, quadrivalent, PF 07/09/2021 completed Not Available [facility] 05:06:56 Influenza, split virus, quadrivalent, PF 08/21/[address] [facility] 08/21/2023 12:28:31 Past Encounters Encounter ID Performer Location Encounter Start Date Encounter Closed Date Diagnosis/Indication Diagnosis SNOMED-CT Code Diagnosis ICD10 Code Diagnosis IMO Codes Diagnosis Note [id number] Gaurav Hunter MD [address] [address] 12/19/2020 00:00:00 12/19/2020 10:08:27 [id number] Gaurav Hunter MD [address] [address] 04/16/2021 00:00:00 04/16/2021 09:50:51 [id number] Gaurav Hunter MD [address] [address] 07/09/2021 00:00:00 07/09/2021 09:25:36 [id number] Gaurav Hunter MD [address] [address] 08/15/2021 00:00:00 08/15/2021 09:22:[id number] [facility] [address] [place] [address] 08/29/2021 00:00:00 08/29/2021 10:51:[id number] [facility] [address] [place] [address] 12/26/2021 00:00:00 12/26/2021 09:29:[id number] [facility] [address] [place] [address] 08/19/2022 00:00:00 08/19/2022 09:17:22 [id number] Gaurav Hunter MD [facility] [address] [place] [address] 10/03/2022 00:00:00 10/03/2022 09:49:18 [id number] Gaurav Hunter MD [facility] [address] [place] [address] 04/03/2023 09:45:19 04/03/2023 10:08:48 Chronic low back pain 208712387 M54.59 Degenerati on of lumbar intervertebral disc 48495411 M51.36 Hyperlipidemia 32406542 E78.5 Gastroesop hageal reflux disease without esophagitis 123529256 K21.9 Allergic rhinitis 000495 04 J30.9 Essential hypertension 82814041 I10 Hyperbilirubinemia 92115 006 E80.6 [id number] Gaurav Hunter MD [facility] [address] [place] [address] 08/21/2023 08:56:51 08/21/2023 09:24:26 Chronic low back pain 325130006 M54.59 Degenerati on of lumbar intervertebral disc 95504780 M51.36 Hyperlipidemia 24175385 E78.5 Gastroesop hageal reflux disease without esophagitis 943522832 K21.9 Allergic rhinitis 478200 04 J30.9 Essential hypertension 30446299 I10 Hyperbilirubinemia 94125 006 E80.6 Adult heal th examination 414577805 Z00.00 Administra tion of influenza vaccine 63621307 Z23 Screening colonoscopy 44 9440838 Z12.11 Obesity 563446180 E66.9 [id number] Gaurav Hunter MD [address] [address] 09/16/2023 08:53:37 09/16/2023 09:28:17 Hyperlipidemia 77841585 E78.5 Gastroesop hageal reflux disease without esophagitis 919875317 K21.9 Chronic low back pain 27 0415021 M54.59 Degenerati on of lumbar intervertebral disc 66400823 M51.36 Overweight 080471759 E66 .3 Pain of ri ght shoulder joint 2216861896 0127769 M25.511 Chronic [id number] Gaurav Hunter MD [address] [address] 03/22/2024 11:50:07 03/22/2024 12:22:34 Seen in emergency clinic 130074596 Z76.89 UC - records reviewed. Cough 46291500 R05.9 Bronchitis 74791259 J40 Pt declined for cxr. Fatigue 24523653 R53.83 [id number] Gaurav Hunter MD [address] [address] 08/24/2024 09:21:42 08/24/2024 09:50:00 Hyperlipidemia 29421814 E78.5 Gastroesop hageal reflux disease without esophagitis 612363113 K21.9 Chronic low back pain 27 9043766 M54.59 Degenerati on of lumbar intervertebral disc 82973622 M51.369 Pain of ri ght shoulder joint 2475477653 9614937 M25.511 Chronic Overweight 544588639 E66 .3 Adult heal th examination 722310040 Z00.00 Health Concerns Section Related Observation LastModified by Organization Detai ls LastModified Time None Recorded Concern Status LastModified by Organization Details LastModified Time None Recorded Advance Directives Directive N: Payers Insurance Date Sequence Insurance Name Policy Number Policy Hdz Covered Member ID Hdz Member ID Guarantor Name 07/29/2025 2 [facility] [id number] Ray Barrera Bahn [id number] Ray Barrera Bahn 07/29/2025 1 [facility] [id number] Ray Barrera Bahn [id number] Ray Barrera Bahn 07/08/2024 1 [facility] [id number] Billie Avitia Bahn [id number] Ray Barrera Bahn Notes Date Note Type Note Provider Name and Address Organization Details Recorded Time 04/03/2023 text/html Pt is here for f/u on his labs and chronic conditions. Doing overall well. Denies any new concern.Pt is f/u with Pain clinic for his back pain and got 3 epidural injections with them and he is doing overall same. Pt has seen a Spine surgeon for this and they did not recommend any surgery for him.C/o Rt shoulder pain for last few yrs. Pt suppose to seen 2nd ortho for this since last year, but has not seen any yet. Pt has done PT in the past for it.Pt is f/u with Cardio and doing well. Pt sees him every 6 months.Pt has SIRIA and had used Cpap and he did not like it. So he got Dental device from his Dentist for it and doing well with it.Doing well with his GERD and denies any concerns. No blood in stool. Gaurav Hunter MD [address] [place] [address], [place], [address], [place] [facility] [employer] 04/03/2023 10:08:41 08/21/2023 text/html Pt is here for his annual exam. Doing overall well. Denies any problem with meds. Denies any new concern.Pt is f/u with Pain clinic for his back pain and got 3 epidural injections with them and he is doing overall same. Pt has seen a Spine surgeon for this and they did not recommend any surgery for him.C/o Rt shoulder pain for last few yrs. Pt suppose to seen 2nd ortho for this since last year, but has not seen any yet. Pt has done PT in the past for it.Pt is f/u with Cardio and doing well. Pt sees him every 6-12 months.Pt has SIRIA and had used Cpap and he did not like it. So he got Dental device from his Dentist for it and doing well with it.Doing well with his GERD and denies any concerns. No blood in stool. Garuav Hunter MD [address], [place], [address], [facility] [employer] [facility] [employer] 09/16/2023 09:05:00 09/16/2023 text/html Pt is here for f/u on his annual labs. Doing overall well. Denies any problem with meds. Denies any new concern.Pt is f/u with Pain clinic for his back pain and got 3 epidural injections with them and he is doing overall same. Pt has seen a Spine surgeon for this and they did not recommend any surgery for him.C/o Rt shoulder pain for last few yrs. Pt suppose to seen 2nd ortho for this since last year, but has not seen any yet. Pt has done PT in the past for it.Pt is f/u with Cardio and doing well. Pt sees him every 6-12 months.Pt has SIRIA and had used Cpap and he did not like it. So he got Dental device from his Dentist for it and doing well with it.Doing well with his GERD and denies any concerns. No blood in stool. Gaurav Hunter MD [address], [place], [address], [facility] [employer] 09/16/2023 09:17:02 03/22/2024 text/html ACV: C/o cough, congestion, drainage, fatigue, bodyaches for last 12 days. Pt says there are few people at his work sick. Pt went to last week for this and got swabs done and it was neg. So pt was given Augmentin for 7 days and he will be finishing it today. No chest pain/sob/n/v/d/ur inary symptoms. Gaurav Hunter MD [address], [place], [address], [facility] [employer] 03/22/2024 12:19:16 08/24/2024 text/html Pt is here for his annual exam. Doing overall well. Denies any problem with meds. Denies any new concern.Pt is f/u with Pain clinic for his back pain and got 3 epidural injections with them and he is doing overall same. Pt has seen a Spine surgeon for this and they did not recommend any surgery for him.C/o Rt shoulder pain for last few yrs. Pt suppose to seen 2nd ortho for this since last year, but has not seen any yet. Pt has done PT in the past for it.Pt is f/u with Cardio and doing well. Pt sees him every 6-12 months.Pt has SIRIA and had used Cpap and he did not like it. So he got Dental device from his Dentist for it and doing well with it.Doing well with his GERD and denies any concerns. No blood in stool. Gaurav Hunter MD [address] [facility], [facility] [address], [place], [address], [place] [facility] 08/24/2024 10:06:52
--- OUTSIDE RECORDS SUMMARY | 2025-08-02 17:50 | XMS_ITS | Clinical Summary ---
Author Organization [facility] [address] Address [address] [place] [address] Care Team Providers Care Residential Door Unit Installer Name Role Phone Gaurav Hunter MD Primary Care Provider [phone] Allergies No known active allergies Medications RABEprazole DR (ACIPHEX) 20 mg EC tablet Take one by mouth one time per day 0 0 11/10/19 10 Active aspirin 81 mg tablet Take one by mouth one time per day 0 0 11/10/19 10 Active fluticasone (FLONASE) 50 mcg/actuation nasal spray inhale 1 spray by intranasal route every day in each nostril 0 spray 0 07/01/20 16 Active multivitamin tablet tablet take 1 by Oral route once 0 0 07/01/20 16 Active cholecalcifero l (VITAMIN D3) 2,000 unit tablet take 1 by Oral route once 0 0 07/01/20 16 Active melatonin 5 mg tablet take as directed 0 0 07/01/20 16 Active acetaminophen (TYLENOL) 325 mg tablet Take 2 tablets (650 mg total) by mouth every 6 (six) hours as needed for pain Active echinacea 500 mg capsule Take by mouth as needed. Active atorvastatin (LIPITOR) 20 mg tablet Take 1 tablet (20 mg total) by mouth daily 90 tablet 3 12/29/19 19 Active furosemide (LASIX) 20 mg tabletIndicati ons:EVANS (dyspnea on exertion) Take 1 tablet (20 mg total) by mouth daily 180 tablet 1 08/31/20 24 Active metoprolol XL (TOPROL-XL) 100 mg 24 hr tablet TAKE ONE-HALF TABLET BY MOUTH DAILY 45 tablet 2 01/28/20 25 Active nitroglycerin (NITROSTAT) 0.4 mg SL tablet DISSOLVE 1 TABLET UNDER THE TONGUE EVERY 5 MINUTES NEEDED FOR CHEST PAIN. MAX OF 3 TABLETS IN 15 MINUTES. CALL 911 IF PAIN PERSISTS. 100 tablet 3 08/01/20 25 Active nitroglycerin (NITROSTAT) 0.[address] 1 tablet (0.4 mg total) under the tongue every 5 (five) minutes as needed for chest pain (May take 1 tablet every 5 minutes, up to 3 tablets in 15 minutes.) 90 tablet 1 05/25/20 25 025 Discontinued Active Problems Problem Noted Date Diagnosed Date History of COVID-19 12/13/2021 Dizziness 06/06/2021 Chest tightness 07/24/2018 Paroxysmal atrial fibrillation 04/28/2017 Presence of stent in coronary artery 04/28/2017 Coronary artery disease of n ative artery of [place] heart with stable angina pectoris 01/03/2017 Overview (01/31/2017): Coronary artery disease involving [place] coronary artery of [place] heart without angina pectoris Palpitations 07/01/2016 Overview (12/12/2016): Palpitations Obstructive sleep apnea syndrome 07/01/2016 Overview (12/12/2016): Obstructive sleep apnea Family history of coronary artery disease 2015 Overview (12/12/2016): Family history of coronary artery disease Atypical chest pain 07/01/2016 Overview (12/12/2016): Atypical chest pain Fatigue 07/01/2016 Overview (12/12/2016): Fatigue, unspecified type EVANS (dyspnea on exertion) 07/01/2016 Overview (12/12/2016): Shortness of breath Resolved Problems Problem Noted Date Diagnosed Date Resolved Date Chest pain on exertion 11/20/201606/06 Overview (01/31/2017): Chest pain on exertion Encounters Date Type Department Care Team Description 05/25/2025 3:15 PM CDT Office Visit [facility] Card[facility] [address] [place] [address] Orlando Alvarado MD Coronary artery disease of new[place] artery of [place] heart with stable angina pectoris (Primary Dx); Obstructive sleep apnea syndrome; Paroxysmal atrial fibrillation (HCC); Palpitations from Last 3 Months Surgical History Surgery Date Site/Laterality Comments CARDIAC CATHETERIZATION KNEE ARTHROSCOPY W/ LATERAL RELEASE 09/08/1991 - 992 CHOLECYSTECTOMY 09/08/1999 - 09/07/2000 Medical History Medical History Date Comments Hx Other Medical allergic rhinit is, SIRIA, GERD, anxiety, depression,; Comments: MAF 07/01/2016 - Coronary artery disease GERD (gastroesophageal reflux disease) 1999 Anxiety 1994 Arthritis 2007 Depression 2016 Sleep apnea 2014 Family History Medical History Relation Name Comments Coronary artery disease Father Paco Cade nary artery disease; Early Father Paco Heart attack Father Paco Heart disease Father Paco Hyperlipidemia Father Paco Hyperlipidemi a; Stroke Maternal Grandmother Werner Schultz Other Mother Michelle Dalal Alive and well; Stroke Mother Michelle Dalal Other Sister 2 Alive and well; Relation Name Status Comments Father Paco (Age 56) Maternal Grandmother Werner Schultz Mother Michelle Dalal Alive Sister 1 Alive Sister 2 Social History Tobacco Use Types Packs/Day Years Used Date Smoking Tobacco: Never Smokeless Tobacco: Never Tobacco Cessation:Counseling Given: Not Answered Alcohol Use Standard Drinks/Week Comments Yes 1 (1 standard drink = 0.6 oz pur e alcohol) occassionally Sex and Gender Information Value Date Recorded Sex Assigned at Not on file Legal Sex Male 11:17 PM [employer] Gender Identity Male 05/08/2019 9:35 PM CDT Sexual Orientation Straight 05/08/2019 9: 35 PM CDT Last Filed Vital Signs Vital Sign Reading Time Taken Comments Blood Pressure 116/60 05/25/2025 3:23 PM CDT Pulse 70 05/25/2025 3:23 PM CDT Temperature 36.3 C (97.3 F) 06/16/2020 2:58 PM CDT Respiratory Rate 18 07/15/2017 8:58 AM [employer] Oxygen Saturation 98% 05/25/2025 3:23 PM CDT Inhaled Oxygen Concentration - - Weight 101.8 kg (224 lb 6.4 oz) 05/25/2025 3:23 PM CDT Height 182.9 cm (6') 05/25/2025 3:23 PM CDT Body Mass Index 30.43 05/25/2025 3:23 PM CDT Plan of Treatment Health Maintenance Due Date Last Done Comments Colon Cancer Screening-Colonoscopy 1967 Depression Screening 1967 Hepatitis C Screening 1967 Prostate Cancer Screening-PSA 1967 Hepatitis B Screening 1985 Regular Well Visit/Exam 18-64 1985 Pneumococcal vaccine <65 (1 of 2 - PCV) 1986 Zoster Vaccine (1 of 2) 2017 Influenza Vaccine (#1) 2025 , 08/19/2022, 07/09/2021 DTaP/Tdap/Td Vaccine (2 - Td or Tdap) 08/10/202811/2017 Insurance [facility] [employer] Care Teams Residential Door Unit Installer Relationship Specialty Start Date End Date Gaurav Hunter MD [address] [address] PCP - General Family Medicine 11/06/18
[2025-08-02 17:53] VITALS: BP 135/75; PULSE 69; RESP 16; TEMP 36.2; O2SAT 98
--- NOTE | 2025-08-02 18:05 | ED.URI ---
HPI - URI/Sore Throat General Chief Complaint: Upper Respiratory Infection Stated Complaint: URI symptoms Time Seen by Provider: 08/02/25 18:20 Source: patient and RN notes reviewed Mode of arrival: ambulatory Limitations: no limitations History of Present Illness HPI Narrative: 59-year-old male patient presents Express Care complaining of upper respiratory symptoms for approximately 5-6 days. Patient reports sinus congestion, sinus pressure, mucopurulent nasal drainage, cough, fevers, body aches and chills reports his given a lot worse over the last couple days. The he was getting better few days ago however it is getting worse. Patient denies any difficulty breathing, wheezing, nausea vomiting, diarrhea, chest pain and or any other symptoms. Patient reports a history AFib, hyperlipidemia, coronary artery disease. Patient is not anticoagulated. Related Data Home Medications ?Medication ?Instructions ?Recorded ?Confirmed ?Last Taken ?Type aspirin 81 mg tablet,delayed 81 mg PO DAILY 08/13/22 03/16/24 Unknown History release (Jack Low Dose Aspirin) atorvastatin 20 mg tablet 20 mg PO DAILY 08/13/22 03/16/24 Unknown History cholecalciferol (vitamin D3) 10 10 mcg PO DAILY 08/13/22 03/16/24 Unknown History mcg (400 unit) capsule [id number] 150 mcg-vit K1 1 tablet PO DAILY 08/13/22 03/16/24 Unknown History 30 mcg-lycop 300 mcg-lutein tablet (Centrum Minis Men 50 Plus) rabeprazole 20 mg tablet,delayed 20 mg PO DAILY 08/13/22 03/16/24 Unknown History release metoprolol succinate 100 mg mg PO 08/02/25 Unknown History tablet,extended release 24 hr Allergies Allergy/AdvReac Type Severity Reaction Status Date / Time No Known Allergies Allergy Verified 08/02/25 17:53 Review of Systems Review of Systems: CONSTITUTIONAL: Positive for fever, body aches, chills,. Negative for sweats. EYES: Denies visual changes, redness, or discharge. ENT: Positive for sinus pressure, congestion. Negative for rhinorrhea, Sore throat, or otalgia. CARDIOVASCULAR: Denies chest pain, palpitations, or edema. RESPIRATORY: Positive for cough. Negative for dyspnea. GASTROINTESTINAL: Denies abdominal pain, nausea, vomiting, or diarrhea. GENITOURINARY: Denies dysuria or hematuria. SKIN: Denies rash or itching. MUSCULOSKELETAL: Denies back pain, joint pain, or myalgia. NEUROLOGIC: Denies headache, numbness, or weakness. PSYCHIATRIC: Denies anxiety or depression. All other systems reviewed are negative, except as documented in HPI. [facility] Past Medical History Medical History Other spondylosis with radiculopathy, lumbar region Lumbar spondylosis Lumbar radiculopathy FHx: total knee replacement Anxiety Depression Gallbladder disease Acid reflux Hiatal hernia Sleep apnea Cardiac arrhythmia Surgical History Surgical History Hx of tonsillectomy S/P cholecystectomy Family History Family History Other Depression Diabetes mellitus Heart disease Hypertension Social History Social History Smoking status: Never smoker Alcohol intake: never Substance use: never Substance use type: does not use Lack of Transportation: No Lack of Food: Never True Current Housing: I Have Housing Concerned About Future Housing: No Difficulty Paying Gas/Electric Bills: No Difficulty Paying for Meds: No Currently Unemployed: No Education: Decline to Answer Difficulty w/ Childcare or Family Care: Decline to Answer Living arrangements: with family Comments At the time of my signature, I reviewed and agree with the nursing past medical, surgical, social, and family history. There is no relevant family history pertinent to the patient complaint. Exam Narrative: GENERAL: This is a well-nourished, well-developed adult, in no apparent distress. They are non ill-appearing, nontoxic appearing. HEAD: normocephalic, atraumatic. EYES: Sclera clear/white. Vision is grossly intact. Conjunctiva normal bilaterally. Extraocular movements intact. EARS: External ears normal, auditory canals clear and without drainage, TMs without erythema or perforation. Hearing grossly intact. NOSE: External nose normal with no obvious nasal discharge, nasal turbinates erythematous with exudate, no rhinorrhea. THROAT: Mucous membranes moist, posterior pharynx erythematous without exudate. Uvula is midline. Postnasal drip present. NECK: Neck supple, tender cervical lymphadenopathy, no masses or thyromegaly. CARDIOVASCULAR: Regular rate and rhythm without murmurs, gallops, or rubs. RESPIRATORY: Clear to auscultation. Breath sounds equal bilaterally. No wheezes, rales, or rhonchi. SKIN: warm, Dry, intact with no suspicious lesions or rash, good texture and turgor. NEURO: awake, alert, and oriented to person, place and time. There were no obvious focal neurologic abnormalities. EXTREMITIES: No joint tenderness, effusion, or edema noted. BACK: Nontender without deformity. Course Course Emergency Course: Portions of this record may have been created with voice recognition software Level of Care: Express Care Visit Vital Signs Vital signs: Vital Signs Temperature 97.2 F L 08/02/25 17:53 Pulse Rate 69 08/02/25 17:53 Respiratory Rate 16 08/02/25 17:53 Blood Pressure 135/75 08/02/25 17:53 Pulse Oximetry 98 08/02/25 17:53 Oxygen Delivery Room Air 08/02/25 17:53 Temperature 97.2 F L 08/02/25 17:53 Pulse Rate 69 08/02/25 17:53 Respiratory Rate 16 08/02/25 17:53 Blood Pressure 135/75 08/02/25 17:53 Pulse Oximetry 98 08/02/25 17:53 Oxygen Delivery Room Air 08/02/25 17:53 MDM - URI/Sore Throat MDM Narrative Medical decision making narrative: Rapid COVID and flu were negative. Given patient's worsening of symptoms. Will treat him for a bacterial sinusitis. Will treat with Augmentin. Discussed physical exam findings. Advised supportive measures and signs/symptoms to go to the ER. Pt is appropriate for outpt treatment and f/u. Differential Diagnosis Differential diagnosis: Likely upper respiratory infection, sinusitis, viral infection, bronchitis and pharyngitis Lab Data Attestation: I reviewed the patient's lab results. Labs: Lab Results 08/02/25 Range/Units 18:14 POC Influenza A Ag Negative (Negative) POC Influenza B Ag Negative (Negative) POC SARS CoV-2 Ag Negative (Negative) Discharge Plan Discharge Clinical Impression: Sinusitis Qualifiers: Sinusitis location: unspecified location Chronicity: acute Recurrence: non-recurrent Qualified Code(s): J01.90 - Acute sinusitis, unspecified Patient Disposition: Home Condition: Stable Instructions: Antibiotic Form, Sinusitis (ED) Additional Instructions: Your rapid COVID and flu were negative today. Take the antibiotics as directed and complete the course even if you start to feel better. You may use a Neti pot saline rinse 3 times a day with lukewarm distilled water Continue to take Tylenol or Motrin stated for pain or fevers. Follow instructions on the bottle. Use a humidifier or vaporizer at night. Drink plenty of water. 8-10 glasses per day. Use flonase 2 times per day for 5 days then as needed Take mucinex 2 times per day and be sure to take with 8oz of water. Follow up with Primary provider in 3-5 days Please go to the ER if he develops any difficulty breathing, chest pain, vomiting, worsening symptoms, or any other serious concerns Patient Language: Azeri Prescriptions: New amoxicillin-pot clavulanate 875-125 mg tablet 1 tablet PO Q12H 7 Days Qty: 14 0RF No Action metoprolol succinate 100 mg tablet extended release 24 hr PO cholecalciferol (vitamin D3) 10 mcg (400 unit) capsule 10 mcg PO DAILY Centrum Minis Men 50 Plus [id number] mcg tablet 1 tablet PO DAILY aspirin [Jack Low Dose Aspirin] 81 mg tablet,delayed release (DR/EC) 81 mg PO DAILY atorvastatin 20 mg tablet 20 mg PO DAILY rabeprazole 20 mg tablet,delayed release (DR/EC) 20 mg PO DAILY Follow-up/Referrals: Dale,MD Gaurav [Primary Care Provider, Unknown] Time of Disposition: 18:23
[2025-08-02 18:16] LABS: EDCOVIDSCREEN Negative (Negative); EDINFLUASCREEN Negative (Negative); EDINFLUBSCREEN Negative (Negative)
== END 2025-08-02 18:28 | disposition home or self-care (01) ==
PROVIDERS: PCP Family Medicine
DX: J01.90 Acute sinusitis, unspecified (principal); Z20.822 Contact with and (suspected) exposure to COVID-19; I48.91 Unspecified atrial fibrillation; E78.5 Hyperlipidemia, unspecified; I25.10 Atherosclerotic heart disease of native coronary artery without angina pectoris; K21.9 Gastro-esophageal reflux disease without esophagitis; Z79.82 Long term (current) use of aspirin
CPT/HCPCS: 87426; 87804; 99213; G0463